=== PATIENT | male | born 1980 | race Two or more races ===

== ENCOUNTER 2017-02-23 09:05 | Emergency (ER) | payer SELFPAY ==
[~2017-02-23] VITALS: Ht 160 cm; Wt 62.1 kg
[2017-02-23 09:14] VITALS: BP 121/72
[2017-02-23 09:45] LABS: NEGATIVE OBC STREP NEG; POSITIVE OBC STREP POS
[2017-02-23] MEDS ORDERED: AMOX500C PO (09:45)
--- NOTE | 2017-02-23 09:45 | PHYS DOC ---
Past Medical History Past Medical History: No Pertinent History Past Surgical History: No Surgical History Alcohol Use: Occasionally Drug Use: None Adult General Chief Complaint Chief Complaint: SORE THROAT HPI HPI Patient is a 36 year old male present to the emergency department with a 2-3 day history of sore throat, nausea and vomiting with fever. He denies nasal drainage or discharge. He has taken tylenol and Ibuprofen for fever and chills. Review of Systems Review of Systems Constitutional: Denies fever or chills [] Eyes: Denies change in visual acuity, redness, or eye pain [] HENT: Denies nasal congestion c/o sore throat [] Respiratory: Denies cough or shortness of breath [] Cardiovascular: No additional information not addressed in HPI [] GI: Denies abdominal pain, bloody stools or diarrhea. C/o nausea and vomiting [] : Denies dysuria or hematuria [] Musculoskeletal: Denies back pain or joint pain [] Integument: Denies rash or skin lesions [] Neurologic: Denies headache, focal weakness or sensory changes [] Endocrine: Denies polyuria or polydipsia [] Allergies Allergies Allergies Coded Allergies Type Severity Reaction Last Updated Verified No Known Drug Allergies 02/23/17 No Physical Exam Physical Exam Constitutional: Well developed, well nourished, no acute distress, non-toxic appearance. [] HENT: Normocephalic, atraumatic, bilateral external ears normal, oropharynx moist, no oral exudates, nose normal. Bilateral TM normal, throat with redness, and exudate noted. No erythema noted Eyes: PERRLA, EOMI, conjunctiva normal, no discharge. [] Neck: Normal range of motion, no tenderness, supple, no stridor. [] Cardiovascular:Heart rate regular rhythm, no murmur [] Lungs & Thorax: Bilateral breath sounds clear to auscultation [] Skin: Warm, dry, no erythema, no rash. [] Back: No tenderness Extremities: No tenderness, no cyanosis, no clubbing, ROM intact, no edema. [] Neurologic: Alert and oriented X 3, normal motor function, normal sensory function, no focal deficits noted. [] Psychologic: Affect normal, judgement normal, mood normal. [] Current Patient Data Vital Signs Vital Signs Date Time Temp Pulse Resp B/P (MAP) Pulse Ox O2 Delivery O2 Flow Rate FiO2 6/6/17 09:14 99.1 61 14 121/72 (88) 98 Room Air 99.1 EKG EKG [] Radiology/Procedures Radiology/Procedures [] Course & Med Decision Making Course & Med Decision Making Pertinent Labs and Imaging studies reviewed. (See chart for details) Rapid strep positive. Patient will be placed on Amoxicillin. Recommended plenty of fluids. Tylenol or Ibuprofen for fever, chills. Recommended to followup with primary care provider in 3-5 days. Signs and symptoms to return to the emergency department has been provided. [] Dragon Disclaimer Dragon Disclaimer This electronic medical record was generated, in whole or in part, using a voice recognition dictation system. Departure Departure Impression: Primary Impression: Strep throat Disposition: HOME, SELF-CARE Condition: STABLE Patient Instructions: Strep Throat, [id number] Additional Instructions: Rapid strep positive Home to rest Medication as prescribed Tylenol or Ibuprofen for fever, chills, nausea and vomiting Drink plenty of fluids Followup with primary care provider in 3-5 days Return to emergency department as needed for signs and symptoms that become worse. Scripts Amoxicillin (AMOXICILLIN) 500 Mg Capsule 1 CAP PO BID, #20 CAP Prov: SARA MOHR APRN 02/23/17 SARA MOHR APRN Feb 23, 2017 09:45
== END 2017-02-23 09:44 | disposition home or self-care (01) ==
LOC: ER 09:05
DX: J02.0 Streptococcal pharyngitis (principal)
CPT/HCPCS: 87880; 99283